=== PATIENT | male | born 1945 | race Caucasian/White ===

== ENCOUNTER 2019-02-23 12:20 | Inpatient (IN) | payer MEDICARE, OTHER ==
[2019-02-23] VITALS (281 sets, daily range): BP systolic 150; BP diastolic 78; PULSE 96; TEMP 97.7; O2SAT 82–100
[~2019-02-23] VITALS: Ht 172.7 cm; Wt 80.4 kg
[~2019-02-23 12:20] MED LIST: ASPIRIN 32325 MG/TAB PO; CLOPIDOGREL PO; ECOTRIN325 MG PO; FISH OIL1 IU PO; FISH OIL1000 MG PO; GLUCOPHAGE500 MG/TAB PO; LEVITRA2.5 MG; LEVITRA2.5 MG PO; LIPITOR 80MG80 MG PO; LISINOPRIL/HCTZ1 TA1 PO; LOPRESSOR 225 MG/TAB PO; LOPRESSOR 550 MG/TAB PO; MULTIPLE VITAMI1 TAB PO; MVI; PERCOCET 325 MG1 TA2 PO; PLAVIX 75MG TAB75 MG PO; PRAVACHOL 20MG20 MG PO; PRINZIDE 12.5 M1 TA1 PO; TOPROL XL 50MG50 MG PO; TOPROL XL100 MG PO; TOPROL XL50 MG PO; VIAGRA 25MG TAB25 MG PO; VIAGRA100 MG PO; VITAMIN C500 MG PO; ZESTRIL 20MG TA20 MG PO; ZOCOR 40MG40 MG PO; ZOCOR 80MG80 MG PO; ZOCOR80 MG PO
[2019-02-23 13:09] LABS: COLLECTION METHOD CLEAN CATCH
[2019-02-23 13:09] LABS: BASO % 0.2 % (0.0-2.0); GRAN # 11.3 (1.4-6.5); GRAN % 85.5 % (42.2-75.2); HEMATOCRIT 41.4 % (42.0-52.0); HEMOGLOBIN 13.2 g/dl (13.5-18.0); LYMPH # 1.1 (1.2-3.4); MEAN CELL VOLUME 102 fl (80.0-100.0); MEAN CORPUSCULAR HEMOGLOBIN 33 pg (27.0-31.0); MEAN CORPUSCULAR HGB CONC 32 g/dl (33.0-37.0); MEAN PLATELET VOLUME 10.5 fl (7.4-10.4); MONO # 0.8 (0.1-0.6); MONO % 5.8 % (1.7-9.3); PLATELET COUNT 264 K/mm3 (130-400); RED BLOOD COUNT 4.06 M/mm3 (4.20-5.60)
[2019-02-23 13:12] LABS: ALANINE AMINOTRANSFERASE < 6 U/L (21-72); ALBUMIN 4.7 gm/dL (3.5-5.0); ALKALINE PHOSPHATASE 76 U/L (50-136); ANION GAP 31 mmol/L (7-16); AST,SGOT 17 U/L (15-37); BILIRUBIN,TOTAL 0.7 mg/dL (0.0-1.0); BLOOD UREA NITROGEN 70 mg/dL (9-20); CALCIUM 9.1 mg/dL (8.4-10.2); CHLORIDE 96 mmol/L (98-107); GLUCOSE 185 mg/dL (74-106); LIPASE 183 U/L (23-300); PHOSPHOROUS 8.6 mg/dL (2.5-4.5); SODIUM 137 mmol/L (137-145); TOTAL PROTEIN 8.1 gm/dL (6.4-8.2)
[2019-02-23 13:15] LABS: CREATININE, serum 13.93 (0.66-1.25)
[2019-02-23 13:16] LABS: CARBON DIOXIDE 10 mmol/L (22-30); POTASSIUM 7.4 mmol/L (3.4-5.0)
[2019-02-23 13:23] LABS: MUCOUS Present /lpf; PH 5 (5-8); URINE APPEARANCE Cloudy; URINE BACTERIA Rare /hpf; URINE BILIRUBIN Negative (NEGATIVE); URINE BLOOD 2+ (NEGATIVE); URINE COLOR Yellow; URINE GLUCOSE 1+ (NEGATIVE); URINE KETONE 1+ (NEGATIVE); URINE LEUKOCYTE ESTERASE Negative (NEGATIVE); URINE NITRATE Negative (NEGATIVE); URINE PROTEIN(semi-quant) 3+ (NEGATIVE); URINE UROBILINOGEN Negative (NEGATIVE)
--- NOTE | 2019-02-23 15:20 | NUR ---
Report received from MARICRUZ Aldana in the ED. Patient is transferred to ICU bed 7 via ED stretcher by BUSINESS INSURANCE AGENT with no complications. Family accompanying patient at this time. Patient has tremors, but otherwise has no complaints or concerns. Full assessment completed and documented in admission B assessment. Call light placed within reach. Bed in lowest position. Billie, IV access, at bedside for PICC placement. Once PICC placed, blood drawn and sent to lab.
[2019-02-23 16:48] LABS: CREATININE, serum 12.84 (0.66-1.25)
[2019-02-23 16:49] LABS: POTASSIUM 6.6 mmol/L (3.4-5.0)
--- NOTE | 2019-02-23 17:35 | NUR ---
Dr. Avitia aware of patient admission to ICU bed 7. Physician states he will be in to visit the patient soon and input orders for the patient.
--- NOTE | 2019-02-23 17:36 | NUR ---
Patient has no diet order at this time. Food intake not documented.
[2019-02-23] MEDS ORDERED: ZESTORETIC 12.51 TA1 PO (18:37)
[2019-02-23] MEDS ORDERED: GLUCOPHAGE500 MG/TAB PO (18:42)
[2019-02-23] MEDS ORDERED: LOPRESSOR 225 MG/TAB PO (18:46)
[2019-02-23] MEDS ORDERED: LIPITOR 80MG80 MG PO (18:50)
[2019-02-23] MEDS ORDERED: PARCOPA 25/101 UDTAB PO (18:53)
[2019-02-23] MEDS ORDERED: TASIGNA150 MG PO (18:59)
[2019-02-23 19:14] LABS: URIC ACID 10.4 mg/dL (3.5-8.5)
--- NOTE | 2019-02-23 19:46 | NUR ---
Bedside shift report given to MARICRUZ Cota. Patient has no complaints or concerns at this time. Call light within reach. Bed in lowest position. Side rails up x3.
--- NOTE | 2019-02-23 19:50 | NUR ---
Assessment complete; assisted up to commode to have a BM. Produced a medium sized soft BM. Patient has tremors at baseline, but reports they are worse right now. Needing one assist with transfers due to tremors and slightly unsteady. Reports some tenderness in bilateral calves which started yesterday. Reports that it feels like "muscular" pain. No redness or swelling noted. Will continue to monitor.
[2019-02-23 22:29] LABS: CALCIUM 7.6 mg/dL (8.4-10.2); POTASSIUM 5.4 mmol/L (3.4-5.0)
[2019-02-23 22:30] LABS: CREATININE, serum 12.46 (0.66-1.25)
[2019-02-24] VITALS (508 sets, daily range): BP systolic 118–138; BP diastolic 59–71; PULSE 65–76; TEMP 97.9–99.2; O2SAT 88–100
[2019-02-24 00:41] LABS: URINE PROTEIN:CREAT RATIO 3.58 (0.00-0.14)
--- NOTE | 2019-02-24 02:45 | NUR ---
Assisted up to commode; had a small loose BM. Requesting a small snack of saltine crackers. No other concerns at this time.
[2019-02-24 05:20] LABS: BASO % 0.3 % (0.0-2.0); EOS % 0.2 % (0-4.0); GRAN # 8.1 (1.4-6.5); GRAN % 79.4 % (42.2-75.2); LYMPH % 9.4 % (20.0-51.0); MEAN CELL VOLUME 100 fl (80.0-100.0); MEAN CORPUSCULAR HGB CONC 33 g/dl (33.0-37.0); MEAN PLATELET VOLUME 10.6 fl (7.4-10.4); MONO % 10.2 % (1.7-9.3); PLATELET COUNT 178 K/mm3 (130-400); RED BLOOD COUNT 3.09 M/mm3 (4.20-5.60); REDCELL DISTRIBUTION WIDTH-CV 14.5 % (11.5-14.5)
[2019-02-24 05:31] LABS: HEMATOCRIT 30.8 % (42.0-52.0); MEAN CORPUSCULAR HEMOGLOBIN 32 pg (27.0-31.0)
[2019-02-24 06:31] LABS: ALBUMIN 3.2 gm/dL (3.5-5.0); PHOSPHOROUS 7.3 mg/dL (2.5-4.5); POTASSIUM 4.9 mmol/L (3.4-5.0)
[2019-02-24 06:33] LABS: CREATININE, serum 12.27 (0.66-1.25)
--- NOTE | 2019-02-24 08:36 | NUR ---
RENAL US BEING PERFORMED AT THIS TIME. DAUGHTER CALLED. UPDATE GIVEN.
--- NOTE | 2019-02-24 09:19 | NUR ---
KINA met with the patient to discuss a discharge plan. The pt lives in [place] with his , Patsy. The pt does not use any DME and reports independence with ADLs. The pt's PCP is Dr. Mccain. The pt receives his medications from the [facility] and [facility] serves his immediate prescription needs. The pt does not have advanced directives in the EMR. The pt was not sure if he had them completed, he stated that his would know. The pt requested a DPOA-HC form just in case he did not have any completed. KINA provided the form to the pt. The pt plans to return home upon discharge. SW will continue to follow for discharge recommendations to assist with any needs.
--- NOTE | 2019-02-24 10:52 | NUR ---
PT'S O2 SAT DECREASED TO 90% WHILE SLEEPING. 2L NC PLACED. O2 SAT NOW 95%.
--- NOTE | 2019-02-24 14:00 | NUR ---
AFTER REVIEWING ORDERS FROM DR ARGUELLES FROM THIS AM I NOTICED THERE WAS NOT A [address] ARGUELLES CALLED TO VERIFY ORDER.
--- NOTE | 2019-02-24 14:30 | NUR ---
24 HOUR URINE FOR CREATININE CLEARANCE AND PROTEIN INITIATED.
--- NOTE | 2019-02-24 16:45 | NUR ---
PT RESTING IN RECLINER CHAIR. PT DENIES ANY NEEDS AT THIS TIME.
--- NOTE | 2019-02-24 19:00 | NUR ---
Bedside report received from MARICRUZ Olivarez. Patient to be transferred to surgical floor.
--- NOTE | 2019-02-24 19:50 | NUR ---
Patient arrives to surgical floor at this time via wheelchair. This nurse assisted with transfer. Patient arrives with all belongings. Patient transfers self to unit bed. Patient's room set up and necessary belongings within reach. Assessment complete. Assessment reveals clear lungs with diminished bases. Active bowel sounds x4 and normal HR and rhythm with S1 and S2 heard. Patient has no complaints of pain. No further needs at this time. Patient would just like to rest. Will continue to monitor. Call light within reach.
[2019-02-25] VITALS: BP 130/57; PULSE 66; TEMP 98.9
--- NOTE | 2019-02-25 | NUR ---
Patient awake at this time and up to the restroom. Standby assist. Patient appears steady on his feet. Patient has no complaints of pain. Denies any needs at this time. Vitals remain stable. Will continue to monitor. Call light within reach.
--- NOTE | 2019-02-25 01:30 | NUR ---
Patient has no VTE ordered at this time. Will pass off to next shift for clarification from physician.
[2019-02-25 04:00] VITALS: BP 134/58; PULSE 68; TEMP 98.3
--- NOTE | 2019-02-25 04:00 | NUR ---
Patient up to the restroom again at this time. Still passing small to moderate amounts of liquid stool. Patient has no complaints of pain. Just requests a sip of water, provided. Patient has no other needs currently. Vitals have remained stable. Patient has had good output through the night. Will continue to monitor. Call light within reach.
[2019-02-25 06:08] LABS: BASO % 0.3 % (0.0-2.0); EOS # 0.1 (0.0-0.7); EOS % 0.8 % (0-4.0); GRAN # 5.4 (1.4-6.5); GRAN % 74.4 % (42.2-75.2); LYMPH # 0.9 (1.2-3.4); LYMPH % 12.6 % (20.0-51.0); MEAN CELL VOLUME 98 fl (80.0-100.0); MEAN CORPUSCULAR HGB CONC 33 g/dl (33.0-37.0); MEAN PLATELET VOLUME 11.1 fl (7.4-10.4); MONO # 0.8 (0.1-0.6); MONO % 11.4 % (1.7-9.3); PLATELET COUNT 159 K/mm3 (130-400); RED BLOOD COUNT 2.93 M/mm3 (4.20-5.60); REDCELL DISTRIBUTION WIDTH-CV 14.5 % (11.5-14.5)
[2019-02-25 06:18] LABS: HEMATOCRIT 28.7 % (42.0-52.0); HEMOGLOBIN 9.5 g/dl (13.5-18.0); MEAN CORPUSCULAR HEMOGLOBIN 32 pg (27.0-31.0)
[2019-02-25 06:26] LABS: ALBUMIN 2.9 gm/dL (3.5-5.0); CALCIUM 6.6 mg/dL (8.4-10.2); PHOSPHOROUS 7.5 mg/dL (2.5-4.5); POTASSIUM 4.4 mmol/L (3.4-5.0)
[2019-02-25 06:27] LABS: CREATININE, serum 12.76 (0.66-1.25)
--- NOTE | 2019-02-25 07:02 | NUR ---
Bedside report given to MARICRUZ Alonzo
[2019-02-25 07:38] VITALS: BP 133/64; PULSE 70; TEMP 98.3
--- NOTE | 2019-02-25 08:40 | NUR ---
Patient in bed resting. Alert and oriented x 3. Shift assessment complete. Denies pain at this time. PICC to right upper arm without complications. Jansen to dependent drainage with clear yellow urine, 24hr urine collection in progress. Denies further needs at this time.
[2019-02-25 11:20] VITALS: BP 134/61; PULSE 67; TEMP 97.8
--- NOTE | 2019-02-25 12:26 | NUR ---
First visit from the oil heaterman. No needs right now.
[2019-02-25 15:27] LABS: CREATININE, serum 12.6 (0.66-1.25); URINE TOTAL VOLUME 1850 mL
[2019-02-25 15:32] LABS: URINE CREATININE CLEARANCE 3.8 mL/min (97-137)
--- NOTE | 2019-02-25 15:51 | NUR ---
Contacted Dr. Avitia, patient has no VTE prophylaxis ordered, per mud plant operator patient to have castro removed after 24 hour urine collection is complete, no orders in system. TORB orders for SCDs and to discontinue castro.
[2019-02-25 16:47] VITALS: BP 116/86; PULSE 86; TEMP 98.7
--- NOTE | 2019-02-25 17:00 | NUR ---
Jansen catheter discontinued, Aspirated 5ml of fluid from balloon and removed catheter, patient tolerated procedure well. Up ambulating in brown, stand by assist with steady gait.
[2019-02-25 17:21] LABS: CREATININE, serum 12.68 (0.66-1.25)
[2019-02-25 17:31] LABS: FRACTIONAL EXCRETION OF NA+ 16.3 %
--- NOTE | 2019-02-25 18:08 | NUR ---
Patient has been ambulating in brown, or sitting in chair throughout the day. Fluids infusing via pump to UMA PICC without complications. Denies pain at this time. Denies further needs at this time. Will report off to fast food shift supervisor.
--- NOTE | 2019-02-25 19:49 | NUR ---
Up to restroom and returned to bed. Voided yellow clear urine. Assessment complete. Lungs clear. Heart sounds normal. Bowels active x4. Pulses strong throughout. No edema noted. Denies pain. Denies needs at this time. Call light in reach.
[2019-02-25 20:00] VITALS: BP 137/66; PULSE 67; TEMP 98.2
[2019-02-26] VITALS (7 sets, daily range): BP systolic 134–149; BP diastolic 49–83; PULSE 59–72; TEMP 97.3–99.4
--- NOTE | 2019-02-26 00:36 | NUR ---
Patient up to restroom with MAINFRAME SOFTWARE DEVELOPER and returned to bed. Call light in reach.
[2019-02-26 01:07] LABS: COLLECTION HOURS 24 Hr (())
--- NOTE | 2019-02-26 04:36 | NUR ---
Resting in bed. Denies needs.
[2019-02-26 07:11] LABS: BASO % 0.5 % (0.0-2.0); EOS # 0.2 (0.0-0.7); EOS % 3.8 % (0-4.0); GRAN # 4.2 (1.4-6.5); GRAN % 68.8 % (42.2-75.2); LYMPH # 0.9 (1.2-3.4); LYMPH % 15.3 % (20.0-51.0); MEAN CELL VOLUME 98 fl (80.0-100.0); MEAN CORPUSCULAR HGB CONC 33 g/dl (33.0-37.0); MEAN PLATELET VOLUME 10.6 fl (7.4-10.4); MONO # 0.7 (0.1-0.6); MONO % 10.9 % (1.7-9.3); PLATELET COUNT 148 K/mm3 (130-400); RED BLOOD COUNT 2.96 M/mm3 (4.20-5.60); REDCELL DISTRIBUTION WIDTH-CV 14.3 % (11.5-14.5)
[2019-02-26 07:13] LABS: HEMATOCRIT 28.9 % (42.0-52.0); HEMOGLOBIN 9.6 g/dl (13.5-18.0); MEAN CORPUSCULAR HEMOGLOBIN 32 pg (27.0-31.0)
--- NOTE | 2019-02-26 07:20 | NUR ---
Report given to MARICRUZ Phoenix. Patient had uneventful night. Resting in bed this AM.
[2019-02-26 07:23] LABS: ALBUMIN 2.9 gm/dL (3.5-5.0); CALCIUM 6.5 mg/dL (8.4-10.2); PHOSPHOROUS 6.7 mg/dL (2.5-4.5); POTASSIUM 4.1 mmol/L (3.4-5.0)
[2019-02-26 07:25] LABS: CREATININE, serum 12.4 (0.66-1.25)
--- NOTE | 2019-02-26 08:00 | NUR ---
PATIENT SITTING UP IN BED WITH BREAKFAT TRAY. PATIENT A&OX4. VSS. BOWEL SOUNDS ACTIVE ALL FOUR QUADRANTS. PATIENT TOLERATING DIET. 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 POSITIVE PEDAL PULSES EQUAL BILATERALLY. NON-PITTING EDEMA TO FEET BILATERALLY. PICC TO RIGHT UPPER ARM. HORIZONTAL REDDENED LINE BELOW PICC LINE SITE. PATIENT DENIES ANY COMPLAINTS OF PAIN. CALL LIGHT WITHIN REACH. PATIENT DENIES ANY OTHER NEEDS AT THIS TIME.
--- NOTE | 2019-02-26 11:48 | NUR ---
IV FLUIDS TO SALINE LOCK PER DR. TORRES ORDERS.
[2019-02-26 13:12] LABS: KAPPA FREE LIGHT CHAIN-SERUM 9.93 mg/dL (()); LAMDA FREE LIGHT CHAIN SERUM 2.52 mg/dL (())
--- NOTE | 2019-02-26 19:35 | NUR ---
PATIENT AMBULATED IN HALLWAYS DURING THE DAY. PATIENT DENIED PAIN THROUGHOUT THE SHIFT. PATIENT STATES THAT HE HAS FELT FATIGUED. NO NEEDS AT THIS TIME. REPORT GIVEN TO MARICRUZ TODD.
--- NOTE | 2019-02-26 20:30 | NUR ---
Patient awakened for IV meds. Is alert and oriented x4. Has PICC right upper arm without redness or swelling. Up ad ayla in the room. Denies pain at this time. Mild tremors to hands noted.
[2019-02-27] VITALS: BP 120/57; PULSE 65; TEMP 98.1
--- NOTE | 2019-02-27 03:30 | NUR ---
Patient awake, IV Flagyl connected and infusing to right PICC without redness or swelling.
[2019-02-27 03:48] VITALS: BP 136/60; PULSE 63; TEMP 98.4
[2019-02-27 06:49] LABS: BASO % 0.5 % (0.0-2.0); EOS # 0.4 (0.0-0.7); EOS % 7.3 % (0-4.0); GRAN # 3.5 (1.4-6.5); GRAN % 60.9 % (42.2-75.2); LYMPH # 1.1 (1.2-3.4); LYMPH % 18.8 % (20.0-51.0); MEAN CELL VOLUME 96 fl (80.0-100.0); MEAN CORPUSCULAR HGB CONC 33 g/dl (33.0-37.0); MEAN PLATELET VOLUME 10.7 fl (7.4-10.4); MONO # 0.7 (0.1-0.6); MONO % 11.6 % (1.7-9.3); PLATELET COUNT 145 K/mm3 (130-400); RED BLOOD COUNT 3.02 M/mm3 (4.20-5.60); REDCELL DISTRIBUTION WIDTH-CV 14.2 % (11.5-14.5)
[2019-02-27 06:54] LABS: HEMOGLOBIN 9.7 g/dl (13.5-18.0); MEAN CORPUSCULAR HEMOGLOBIN 32 pg (27.0-31.0)
[2019-02-27 06:59] LABS: CALCIUM 6.4 mg/dL (8.4-10.2); PHOSPHOROUS 5.9 mg/dL (2.5-4.5); POTASSIUM 3.9 mmol/L (3.4-5.0)
[2019-02-27 07:00] LABS: CREATININE, serum 11.24 (0.66-1.25)
--- NOTE | 2019-02-27 07:11 | NUR ---
Patient up in room, voiding per urinal yellow urine.
--- NOTE | 2019-02-27 08:00 | NUR ---
PATIENT UP TO THE CHAIR THIS MORNING. PATIENT IS A&OX4. VSS. BOWEL SOUNDS ACTIVE ALL FOUR QUADRANTS. PATIENT TOLERATING DIET WITHOUT COMPLAINTS OF N/V. POSITIVE PEDAL PULSES EQUAL BILATERALLY. 1+ PITTING-EDEMA TO FEET BILATERALLY. 1+ PITTING-EDEMA TO RIGHT HAND NOTED. TRACE NON-PITTING EDEMA TO LEFT HAND. HORIZONTAL ERYTHEMA AND ECCHYMOSIS TO RUE BELOW PICC SITE. PICC TO RUE. CALL LIGHT WITHIN REACH. PATIENT DENIES PAIN. NO OTHER NEEDS AT THIS TIME.
[2019-02-27 08:03] VITALS: BP 158/69; PULSE 76; TEMP 98.2
--- NOTE | 2019-02-27 08:45 | NUR ---
PICC intact right upper arm with sterile dressing change done with insertion site cleansed with chloraprep x 1, chlorhexidine impregnated disk applied, skin prep, stat lock, and tegaderm applied. no signs or symptoms of IV complications noted. no concerns voiced. re-wrapped with jose to protect catheter.
[2019-02-27] MEDS ORDERED: JANUVIA25 MG PO (11:05)
[2019-02-27] MEDS ORDERED: ZYLOPRIM 100MG100 MG PO (11:05)
[2019-02-27 12:05] VITALS: BP 142/77; PULSE 64; TEMP 98.7
--- NOTE | 2019-02-27 13:00 | NUR ---
The patient is to discharge back home with his today, 02/27. SW presented and explained the IM form to the patient. The patient verbalized understanding, signed, and he was provided a copy. No additional needs at this time.
--- NOTE | 2019-02-27 14:00 | NUR ---
PICC INSERTION SITE DRESSED WITH GAUZE AND TEGADERM AND IS CD&I. SITE SOFT UPON PALPATION. NO HEMATOMA NOTED. DISCHARGE INSTRUCTIONS REVIEWED WITH PATIENT AND . ALL QUESTIONS ANSWERED. PATIENT AMBULATED WITH SURGICAL STAFF TO PERSONAL VEHICLE. PATIENT DISCHARGED.
[2019-02-27 14:26] LABS: IEPS IGA 142 mg/dL (101-645); IEPS IGG 682 mg/dL (540-1822); IEPS IGM 25 mg/dL (22-240)
== END 2019-02-27 14:00 | disposition home or self-care (01) | DRG 393 ==
LOC: COL.ER 12:20 → ICU 13:33 → SURG 02-24 23:15
PROVIDERS: Emergency Medicine; ADMIT Internal Medicine Nephrology
PROC: 02HV33Z Insertion of Infusion Device into Superior Vena Cava, Percutaneous Approach (ICD-10-PCS; principal; 2019-02-23)
DX: K52.1 Toxic gastroenteritis and colitis (principal); N17.0 Acute kidney failure with tubular necrosis; E87.2 Acidosis; E87.5 Hyperkalemia; I10 Essential (primary) hypertension; E78.5 Hyperlipidemia, unspecified; E11.9 Type 2 diabetes mellitus without complications; I25.10 Atherosclerotic heart disease of native coronary artery without angina pectoris; Z95.5 Presence of coronary angioplasty implant and graft; Z95.1 Presence of aortocoronary bypass graft; Z85.6 Personal history of leukemia; Z88.0 Allergy status to penicillin; T38.3X5A Adverse effect of insulin and oral hypoglycemic [antidiabetic] drugs, initial encounter; A08.4 Viral intestinal infection, unspecified; M10.9 Gout, unspecified
CPT/HCPCS: A4217; C1751; J0696; J1815; J1956; J2405; J3010; J7030

== ENCOUNTER → 2019-07-30 | Outpatient (CLI) | payer MEDICARE, OTHER ==
[~2019-07-30] MED LIST changes: +JANUVIA25 MG PO; +PARCOPA 25/101 UDTAB PO; +TASIGNA150 MG PO; +ZESTORETIC 12.51 TA1 PO; +ZYLOPRIM 100MG100 MG PO
== END ==
LOC: COL.RAD 12:46
DX: R26.89 Other abnormalities of gait and mobility (principal)
CPT/HCPCS: A9585

== ENCOUNTER → 2022-08-17 | Outpatient (CLI) | payer MEDICARE, OTHER ==
[2022-08-17 16:34] LABS: ALBUMIN 3.9 gm/dL (3.4-4.8); CALCIUM 9.8 mg/dL (8.4-10.2); CREATININE, serum 1.47 mg/dL (0.72-1.25); POTASSIUM 3.9 mmol/L (3.5-4.5)
== END ==
LOC: COL.LAB 15:51
PROVIDERS: Internal Medicine
DX: C92.10 Chronic myeloid leukemia, BCR/ABL-positive, not having achieved remission (principal)